=== PATIENT | female | born 1945 | race Hispanic/Latino ===

== ENCOUNTER 2021-10-10 11:12 | Emergency (ER) | payer OTHER ==
[~2021-10-10] VITALS: Ht 152.4 cm; Wt 88.5 kg
[2021-10-10 11:13] VITALS: BP 137/114
[2021-10-10] MEDS ORDERED: ACETAMINOPHEN 500 MG TABLET PO STA (11:41)
== END 2021-10-10 12:39 | disposition home or self-care (01) ==
LOC: EDH 11:12
DX: S52.122A Displaced fracture of head of left radius, initial encounter for closed fracture (principal); S00.83XA Contusion of other part of head, initial encounter; I10 Essential (primary) hypertension; Z90.49 Acquired absence of other specified parts of digestive tract; W01.0XXA Fall on same level from slipping, tripping and stumbling without subsequent striking against object, initial encounter; Y93.01 Activity, walking, marching and hiking; Y92.89 Other specified places as the place of occurrence of the external cause; Y99.8 Other external cause status
CPT/HCPCS: 73060; 73080

== ENCOUNTER → 2022-06-04 | Outpatient (CLI) | payer OTHER | END | disposition home or self-care (01) | LOC: RAH 15:01 | PROVIDERS: ATTEND Orthopaedic Surgery Sports Medicine | DX: S92.011 Displaced fracture of body of right calcaneus (principal); X58.XXXD Exposure to other specified factors, subsequent encounter | CPT/HCPCS: 73700 ==